=== PATIENT | male | born 1970 | race Hispanic/Latino ===

== ENCOUNTER 2019-11-28 18:22 | Emergency (ER) | payer SELFPAY ==
[2019-11-28] MEDS ORDERED: Ondansetron PF 4 MG/2 ML Vial ONE (18:29)
[2019-11-28] MEDS ORDERED: Fentanyl 100 MCG/2 ML VIAL ONE (18:29)
[2019-11-28 18:52] LABS: #Basophils 0.1 thou/uL (0.0-0.2); #Eosinphils 0.2 thou/uL (0.0-0.7); #Lymphocytes 1.6 thou/uL (1.20-3.40); #Monocytes 0.8 thou/uL (0.11-0.59); #Neutrophils 6.1 thou/uL (1.40-6.50); %Basophils 1.2 % (0.0-1.0); %Eosinophils 2.1 % (0.0-10.0); %Lymphocytes 17.8 % (21.0-51.0); %Monocytes 9.2 % (0.0-10.0); %Neutrophils 69.7 % (42.0-75.0); Mean Corpuscular HGB CONC 31.2 g/dL (32.0-36.0); Mean Corpuscular Hemoglobin 31.2 pg (27.0-31.0); Mean Platelet Volume 7.8 fL (7.4-10.4); Platelet Count 273 thou/uL (130-400); RBC Distribution Width 11.8 % (11.5-14.5); Red Blood Cell (RBC) Count 5.14 mill/uL (4.70-6.10); White Blood Cell (WBC) Count 8.7 thou/uL (4.8-10.8)
[2019-11-28 19:05] LABS: ALT (SGPT) 73 U/L (8-55); AST (SGOT) 46 U/L (5-34); Albumin 4.7 g/dL (3.5-5.0); Alkaline Phosphatase 65 U/L (40-110); Anion Gap 16 mmol/L (10-20); BUN (Urea Nitrogen) 19 mg/dL (8.9-20.6); Bilirubin, Total 1.1 mg/dL (0.2-1.2); Calc. Creatinine Clearance 0 mL/min (70-130); Calcium 9.5 mg/dL (7.8-10.44); Carbon Dioxide 21 mmol/L (22-29); Chloride 106 mmol/L (98-107); Estimated GFR-MDRD 75; Globulin 3.3 g/dL (2.4-3.5); Glucose 99 mg/dL (70-105); Potassium 4.1 mmol/L (3.5-5.1); Sodium 139 mmol/L (136-145)
--- NOTE | 2019-11-28 19:30 | CT ---
CT OF THE BRAIN WITHOUT CONTRAST: 11/28/19 The ventricles are normal in size with no shift. No intracranial bleeding, or extra-axial hematoma wa s seen. There is no sign of mass, stroke or edema. The skull appears intact. There is no air fluid level in the sphenoid sinus, however, there is marked mucosal thickening in each maxillary sinus. Much of the face was covered which showed no obvious fac ial fracture. The orbital areas showed no acute findings. IMPRESSION: 1. No acute intracranial findings. 2. Chronic bilateral maxillary sinusitis. Preliminary report of all scans called to May in ER at 1900 on 11/28/19. POS: HOME
--- NOTE | 2019-11-28 19:42 | CT ---
CT OF THE CERVICAL SPINE 11/28/[address] of the cervical spine was done for evaluation following trauma. No fracture, dislocation, o r disc space narrowing was seen at any cervical level. The C1 to dens distance is normal and the soft tissues are normal in thickness. An equivocal line seen at the base of the transverse process of C7 on the right does not appear acute and may actually be a trabecular marking. On an accompanying CT of the thoracic spine that included this area, it was even less conspicuous or concerning. There is mil d loss of the normal cervical lordosis which may be due to muscle spasm. IMPRESSION: Aside from some mild straightening of the cervical spine, no acute findings. PRELIMINARY REPORT CALLED TO MAY IN ER @ 1900 ON 11/28/2019. POS: HOME
--- NOTE | 2019-11-28 19:49 | CT ---
CT OF THE THORACIC SPINE 11/28/[address] of the thoracic spine was performed for evaluation following trauma. Comparison is made wit h the prior CT chest, abdomen and pelvis dated 01/03/14 that showed a T12 fracture. The patient's old T12 fracture is again noted. There is a portion of the superior end plate that has collapsed, but this is obviously longstanding with corticated margins. A faint vertical fracture toni e through the vertebral body was present previously. There is no displacement. The remainder of the thoracic spine showed no acute change. No fractures were seen elsewhere. There i s considerable dependent atelectasis in the lungs, but no sign of significant pleural effusion or pne umothorax. The visible portions of the mediastinum were unremarkable. Scans showed portions of a few of the upper abdominal organs. All visible structures appeared intact. There is probably a tiny nonob structing calculus in the right kidney. An equivocal line in the right transverse process of C7 mentioned on the CT of the cervical spine is visible on one slice only and is even less impressive here. I doubt that it is related to current tra flavia. IMPRESSION: No acute findings. Old T12 fracture as noted. Preliminary report called to May in ER at 1900 on 11/28/19. POS: HOME
== END 2019-11-28 19:40 | disposition home or self-care (01) ==
LOC: BURERS 18:22
DX: S13.9XXA Sprain of joints and ligaments of unspecified parts of neck, initial encounter (principal); S00.03XA Contusion of scalp, initial encounter; S20.229A Contusion of unspecified back wall of thorax, initial encounter; F17.210 Nicotine dependence, cigarettes, uncomplicated; W11.XXXA Fall on and from ladder, initial encounter
CPT/HCPCS: 36415; 70450; 72125; 72128; 80053; 85025; 96374; 96375; J2405; J3010